=== PATIENT | male | born 2000 | race Asian ===

== ENCOUNTER 2024-07-03 20:17 | Emergency (ER) | payer BC ==
[~2024-07-03] VITALS: Ht 167.6 cm; Wt 76.4 kg
[2024-07-03 20:31] VITALS: TEMP 97.9
[2024-07-03] MEDS ORDERED: MONODOX100 PO (21:55)
[2024-07-03] MEDS ORDERED: CLEOCIN HCL300 MG PO (21:55)
[2024-07-03] MEDS ORDERED: Doxycycline Monohydrate 100 MG CAP PO ONE (22:00)
[2024-07-03] MEDS ORDERED: Rabies Immune Globulin PF 300 UNITS/2 ML VIAL IM ONE (22:00)
[2024-07-03] MEDS ORDERED: Tdap Vaccine 0.5 ML SYRINGE IM ONE (22:00)
[2024-07-03] MEDS ORDERED: Clindamycin 150 MG CAP PO ONE (22:00)
[2024-07-03 23:14] VITALS: BP 110/90; PULSE 54
[2024-07-04] MEDS ORDERED: DOXYCYCLINE 10100 MG PO (10:05)
[2024-07-04] MEDS ORDERED: CLEOCIN HCL300 MG PO (10:05)
== END 2024-07-03 23:14 | disposition home or self-care (01) ==
LOC: COL.ER 20:17
DX: S51.851A Open bite of right forearm, initial encounter (principal); S61.452A Open bite of left hand, initial encounter; S61.451A Open bite of right hand, initial encounter; Z23 Encounter for immunization; W55.01XA Bitten by cat, initial encounter